=== PATIENT | female | born 1980 | race Caucasian/White ===

== ENCOUNTER 2016-09-29 10:10 | Emergency (ER) | payer MEDICAID ==
--- NOTE | 2016-09-29 13:20 | EDPHY ---
H & P Stated Complaint: Cough,fever, dizziness several days. Source: Patient Exam Limitations: No limitations - Personal History LMP (Females 10-55): 8-14 Days Ago Current Tetanus/Diphtheria Vaccine: Yes Current Tetanus Diphtheria and Acellular Pertussis (TDAP): Yes Tetanus Vaccine Date: 2014 - Medical/Surgical History Hx Asthma: No Hx Chronic Respiratory Disease: No Hx Diabetes: No Hx Cardiac Disease: No Hx Renal Disease: No Hx Cirrhosis: No Hx Alcoholism: No Hx HIV/AIDS: No Hx Splenectomy or Spleen Trauma: No Other PMH: ORIF ankles and fibia-fall aged 12, migraines - Social History Smoking Status: Never smoked Time Seen by Provider: 09/29/16 13:00 HPI/ROS: HPI: 28-year-old female presents to emergency department with chief concern worsening cough. Reports onset of mouth sores, dry scratchy throat, and mild cough 4 days ago. Cough continued to worsen and now she has coughing fits. Reports yellow phlegm. Reports onset of sudden acute 5/10 maxillary sinus and tooth pain yesterday. Reports low-grade subjective fever last night. Denies chills, myalgias, shortness of breath, chest pain, dizziness, abdominal pain, nausea, vomiting, diarrhea. No aggravating or alleviating factors. Past medical history notable for ORIF of the ankle, migraines. Has no primary care provider. Denies history of asthma or pneumonia. Reports history of social smoking. ROS:10 point review of systems is negative other than as stated in HPI (Paris Flores) Constitutional: Initial Vital Signs Temperature (C) 36.7 C 09/29/16 10:13 Heart Rate 98 09/29/16 10:13 Respiratory Rate 16 09/29/16 10:13 Blood Pressure 110/69 09/29/16 10:13 O2 Sat (%) 97 09/29/16 10:13 O2 Delivery Mode Room Air Allergies/Adverse Reactions: No Known Allergies Allergy (Unverified 09/29/16 10:16) Home Medications: Medication Instructions Recorded Albuterol Hfa Anes Only [Proair 2 puffs IH QID PRN #1 mdi 09/29/16 Hfa Anes Only] Amoxicillin/Clavulanate Pot 875 mg PO BID #14 tab 09/29/16 [Augmentin 875 MG TAB (*)] Medical Decision Making - Diagnostics Imaging: Chest, PA and Lateral History: Tenderness, cough, low-grade fever Comparison: None Findings: Lung volumes are mildly prominent. There is perihilar bronchial wall thickening. Lungs are clear, without infiltrate or consolidation. Heart size and pulmonary vascularity are normal. There is no adenopathy or mass lesion. 2 small nodules overlie the posterior chest on the lateral view. There is no pleural effusion, pneumomediastinum or pneumothorax. Bones are unremarkable for age. Impression: 1. Airways disease without pneumonia. 2. 2 small posterior lung nodules. If there are any old outside chest x-rays, we would be happy to review them to assess for interval change. If not, recommend noncontrast chest CT. Dictated By: Dick Valentino MD (Paris Flores) ED Course/Re-evaluation: This nontoxic 36-year-old female presents to emergency department with worsening cough that onset suddenly 4 days ago associated with other URI symptoms. She is afebrile and nontoxic. She has no primary care provider. Chest x-ray is negative for pneumonia, does show reactive airway disease and 2 posterior pulmonary nodules. I have discussed these findings with the patient including pulmonary nodules and need for the CT of the chest for further evaluation. She has no primary care provider so she has been referred to the on -call outpatient medicine provider. Additionally, she is treated for a sinusitis. She verbalizes understanding and has no further questions. This case was discussed with my attending Dr. Reinaldo Salazar. Rapid strep and flu swab are both negative. Referred to outpatient medicine clinical documentation developer and sent with a copy of her chest x-ray on disc. (Paris Flores) Differential Diagnosis: Differential diagnosis includes but is not limited to and in no particular order viral upper respiratory infection including influenza and bronchitis, reactive airway disease, pneumonia, strep pharyngitis, viral pharyngitis, sinusitis, lung CA, other CA with mets (Paris Flores) - Data Points Laboratory Results: 09/29/16 09/29/16 09/29/16 Unknown 11:40 11:40 Influenza Typ A,B (DFA) NEGATIVE FOR FLU (NEGATIVE) Group A Strep Screen NEGATIVE (NEGATIVE) Group A Strep DNA Pending Departure - Departure Disposition: Home, Routine, Self-Care Clinical Impression: Reactive airway disease Upper respiratory infection Qualifiers: URI type: unspecified viral URI Qualified Code(s): J06.9 - Acute upper respiratory infection, unspecified Sinusitis, acute Qualifiers: Sinusitis location: maxillary Recurrence: non-recurrent Qualified Code(s): J01.00 - Acute maxillary sinusitis, unspecified Condition: Good Instructions: Sinusitis (ED), Upper Respiratory Infection (ED), Reactive Airways Disease (ED) Additional Instructions: Plan: Antibiotic as prescribed for sinusitis Use your albuterol inhaler 2 puffs every 4-6 hours for shortness of breath, wheezing associated with reactive airway disease as found on chest x-ray as discussed. Drink plenty of fluids. Rest. You may use over the counter cough and cold medicine for symptom relief. You may use Tylenol or Ibuprofen for fever and pain control. Use saline irrigation to each nostril twice daily-morning and evening. For sore throat, gargle with warm salt water three times daily. Return to Urgent Care or ER if you develop chest pain, difficulty breathing, or difficulty swallowing. Follow up as directed with primary care within the next 2-3 days without fail for further evaluation and management, as discussed, you need a follow-up CT to further evaluate pulmonary nodules--tell the office you are an "ER follow up appointment when you call. No work until afebrile times 24 hours Return here promptly for worsening symptoms such as facial/tooth pain, chest pain, shortness of breath, unremitting fever, nausea, vomiting, difficulty swallowing. Referrals: NONE *PRIMARY CARE P,. [Primary Care Provider] - As per Instructions Clau Jacob DO [Doctor of Osteopathy] - As per Instructions Stand Alone Forms: Work Excuse Prescriptions: Albuterol Hfa Anes Only [Proair Hfa Anes Only] 2 puffs IH QID PRN #1 mdi PRN Reason: Short Of Breath/Dyspnea Amoxicillin/Clavulanate Pot [Augmentin 875 MG TAB (*)] 875 mg PO BID #14 tab
[2016-09-29 14:05] VITALS: BP 132/85; PULSE 69; RESP 18; TEMP 98.4; O2SAT 96
== END 2016-09-29 14:02 | disposition home or self-care (01) ==
DX: J45.909 Unspecified asthma, uncomplicated (principal); J06.9 Acute upper respiratory infection, unspecified; J01.00 Acute maxillary sinusitis, unspecified

== ENCOUNTER → 2016-10-10 | Outpatient (CLI) | payer MEDICAID | LOC: FIMAGING 14:53 | PROVIDERS: ATTEND Family Medicine | DX: R91.1 Solitary pulmonary nodule (principal) ==